=== PATIENT | male | born 1975 | race Caucasian/White ===

== ENCOUNTER 2020-01-14 21:10 | Emergency (ER) | payer OTHER ==
[~2020-01-14] VITALS: Ht 180.3 cm; Wt 108.9 kg
[2020-01-14 21:19] VITALS: BP 137/75; Ht 180.3 cm; Wt 108.9 kg
== END 2020-01-14 21:38 | disposition home or self-care (01) ==
LOC: ED 21:10
DX: Z02.89 Encounter for other administrative examinations (principal)